=== PATIENT | male | born 1955 | race Caucasian/White ===

== ENCOUNTER 2021-10-23 05:29 | Day surgery (SDC) | payer MEDICARE, OTHER ==
[2021-10-16 12:13] LABS: BASOPHILS % (AUTO) 0.6 % (0-1); EOSINOPHILS % (AUTO) 0.5 % (0-6); LYMPHOCYTES % (AUTO) 16.3 % (21-51); MEAN CORPUSCULAR HEMOGLOBIN 29.3 PG (27.0-31.0); MEAN CORPUSCULAR HGB CONC 33.3 g/dL (33.0-36.5); MEAN CORPUSCULAR VOLUME 88.1 FL (78-98); MEAN PLATELET VOLUME 7.5 FL (7.4-10.4); MONOCYTES # (AUTO) 0.4 X10'3 (0-0.9); MONOCYTES % (AUTO) 6.1 % (2-12); NEUTROPHILS # (AUTO) 4.5 X10'3 (1.8-7.7); NEUTROPHILS % (AUTO) 76.5 % (42-75); PRE OP HEMATOCRIT 47.4 % (42.0-52.0); PRE OP HEMOGLOBIN 15.8 g/dL (14.0-17.9); PRE OP PLATELET COUNT 184 X10'3 (140-440); RED BLOOD COUNT 5.39 X10'6 (4.70-6.10)
[2021-10-16 12:25] LABS: HEMOGLOBIN A1C 6.9 % (4.5-6.2)
[2021-10-16 12:28] LABS: ALBUMIN 4.2 G/DL (3.4-5.0); ALBUMIN/GLOBULIN RATIO 1.1 (1.1-1.5); ALKALINE PHOSPHATASE 102 IU/L (46-116); BLOOD UREA NITROGEN 20 MG/DL (7-18); BUN/CREATININE RATIO 19.6 (5.4-32.0); CALCIUM 8.9 MG/DL (8.5-10.1); CHLORIDE 105 MMOL/L (99-107); CREATININE 1.02 MG/DL (0.60-1.10); PRE OP ALT 27 U/L (30-65); PRE OP ANION GAP 11 (8-16); PRE OP AST 23 U/L (10-37); PRE OP BILIRUB, TOTAL 0.6 MG/DL (0.0-1.0); PRE OP GLUCOSE 109 MG/DL (70-104); PRE OP SODIUM 141 MMOL/L (135-145); TOTAL CARBON DIOXIDE 24.9 MMOL/L (24-32); eGFR 73 ML/MIN
[2021-10-23] VITALS (16 sets, daily range): BP systolic 102–128; BP diastolic 55–82
[~2021-10-23] VITALS: Ht 172.7 cm; Wt 79.4 kg
[~2021-10-23 05:29] MED LIST: ASPI-1071 PO; ATOR20TA66 PO; CLOP75TA33 PO; EMPA10TA PO; GLIP10TA11 PO; GLIP5TAB13 PO; METF-436 PO; METO-384 PO; SEMA0.25 SQ; ringers solution, lacted 1,000 ML IV SCH
[2021-10-23] MEDS ORDERED: ceFAZolin inj. 2,000 MG in dextrose 5%-water 100 ML IV ONE (05:30)
[2021-10-23] MEDS ORDERED: vancomycin 1,500 MG in NS 300ml IV soln IV ONE (05:30)
[2021-10-23] MEDS ORDERED: acetaminophen 325mg tablet PO ONE (05:30)
[2021-10-23] MEDS ORDERED: tranexamic acid inj. 1,000 MG in normal saline 100ml IV soln 90 ML IV ONE (05:30)
[2021-10-23] MEDS ORDERED: oxyCODONE SR 10mg (sust. release) tab -2 tabs (20mg) PO ONE (05:30)
[2021-10-23] MEDS ORDERED: DOCUMENT DATE & TIME OF BETA-BLOCKER PO ONE (05:30)
[2021-10-23] MEDS ORDERED: famotidine 20mg tablet PO ONE (05:30)
[2021-10-23] MEDS ORDERED: metoclopramide 5 mg/ml inj IV ONE (05:30)
[2021-10-23] MEDS ORDERED: celeCOXIB 100mg capsule PO ONE (05:30)
[2021-10-23] MEDS ORDERED: gabapentin 300mg capsule PO ONE (05:30)
[2021-10-23] MEDS ORDERED: magnesium hydroxide 30ml (MOM) UD suspension PO PRN (06:30)
[2021-10-23] MEDS ORDERED: HYDROmorphone 1 mg/ml syringe IV PRN (06:30)
[2021-10-23] MEDS ORDERED: MESSAGE TO PHARMACY PO ONE (06:30)
[2021-10-23] MEDS ORDERED: naloxone 0.4 mg/ml inj IV PRN (06:30)
[2021-10-23] MEDS ORDERED: dextrose 50%-water 50ml dispensing syringe IV PRN ×2 (06:30)
[2021-10-23] MEDS ORDERED: potassium cl 20mEq in 1/2 NS 1,000 ML IV SCH (06:30)
[2021-10-23] MEDS ORDERED: acetaminophen 325mg tablet PO PRN (06:30)
[2021-10-23] MEDS ORDERED: traMADol 50MG tablet PO PRN ×2 (06:30)
[2021-10-23] MEDS ORDERED: HYDROmorphone inj. 0.5 MG/0.5 ML DISP.SYRIN IV PRN (06:30)
[2021-10-23] MEDS ORDERED: bisacodyl 10mg suppository rectal RC PRN (06:30)
[2021-10-23] MEDS ORDERED: diphenhydrAMINE 25mg capsule PO PRN ×2 (06:30)
[2021-10-23] MEDS ORDERED: ondansetron/PF 4mg/2ml inj IV PRN ×2 (06:30→07:05)
[2021-10-23] MEDS ORDERED: glucagon, human recombinant 1mg kit SUBCUT PRN (06:30)
[2021-10-23] MEDS ORDERED: DEXTROSE 15 GM of carb/4 tabs (each vial/BOTTLE has 4 tablets) PO PRN ×2 (06:30)
[2021-10-23] MEDS ORDERED: insulin Lispro (HumaLOG) vial - multi-dose SQ SCH (06:30)
--- NOTE | 2021-10-23 06:33 | NUR ---
PATIENT DID NOT WATCH DVD FOR TOTAL JOINT NO OINTMENT DONE AT HOME EITHER PER PATIENT. PEDAL PULSES MARKED.
[2021-10-23] MEDS ORDERED: ROPIVAcaine 0.5% (5mg/ml) 30ml vial ONE (06:43)
[2021-10-23] MEDS ORDERED: cloNIDine hcl/PF 100mcg/ml inj ONE (06:43)
[2021-10-23] MEDS ORDERED: epiNEPHrine 1 mg/ml inj ONE (06:43)
[2021-10-23] MEDS ORDERED: ketorolac trometh. 30mg/ml inj. ONE (06:43)
[2021-10-23] MEDS ORDERED: fentaNYL/PF 50MCG/1 ML 2ML syringe ONE (07:01)
[2021-10-23] MEDS ORDERED: MIDAZolam 1mg/ml 10ml vial ONE (07:01)
[2021-10-23] MEDS ORDERED: morphine 2 MG/ML inj. syringe IV PRN (07:05)
[2021-10-23] MEDS ORDERED: labetalol 20mg/4ml (5mg/ml) syringe IV PRN (07:05)
[2021-10-23] MEDS ORDERED: ringers solution, lacted 1,000 ML IV SCH (07:05)
[2021-10-23] MEDS ORDERED: morphine 4 MG/ML inj SYRINge IV PRN (07:05)
[2021-10-23] MEDS ORDERED: fentaNYL/PF 50MCG/1 ML 2ML syringe IV PRN ×2 (07:05)
[2021-10-23] MEDS ORDERED: hydrALAZINE 20mg/ml inj. IV PRN (07:05)
[2021-10-23] MEDS ORDERED: vancomycin 1,000mg inj ONE (07:24)
[2021-10-23] MEDS ORDERED: epiNEPHrine 1 mg/ml inj IM ONE (07:30)
[2021-10-23] MEDS ORDERED: ketorolac trometh. 30mg/ml inj. IM ONE (07:30)
[2021-10-23] MEDS ORDERED: propofol inj 20 ML IV ONE (07:36)
[2021-10-23] MEDS ORDERED: LIDOcaine 2% (20mg/ml) 5ml vial ONE (07:36)
[2021-10-23] MEDS ORDERED: ePHEDrine 50MG/ML INJ. ONE (07:39)
[2021-10-23] MEDS: gabapentin 300mg capsule PO SCH ×2 (08:00→12:29)
--- NOTE | 2021-10-23 08:42 | NUR ---
Received from OR via BED, accompanied by Anesthesiologist DR DOUGHERTY and report given by Anesthesiologist AND GEARCASE ASSEMBLER. PT DROWSY, DENIES PAIN, LEFT LEG IN BRACE W/LEG WRAP, AVA DRAIN CDI. DERMATOME LEVEL L-1. Addendum: 10/23/21 at 0911 by Jess Mercer RN Amended: Links added.
--- NOTE | 2021-10-23 09:52 | NUR ---
Report called to receiving nurse. Transferred via BED, 1 BAG OF Belongings SENT W/PT TO ROOM 4022B. BLL, CALL LIGHT GIVEN, SIDE RAILS UP X 2, PT ORIENTED TO SELF, SURROUNDINGS AND SAFETY. PT ATTACHED TO VS MACHINE. RECEIVING RN NOTIFIED OF PTS ARRIVAL. Special Issues communicated to receiving nurse. YES. Addendum: 10/23/21 at 1008 by Jess Mercer RN Amended: Links added.
[2021-10-23] MEDS ORDERED: tranexamic acid inj. 800 MG in normal saline 100ml IV soln 92 ML IV ONE (11:35)
[2021-10-23] MEDS ORDERED: cefazolin/dext.iso 2gm/100ml 100 ML IV SCH (16:00)
[2021-10-23] MEDS ORDERED: VANCOMYCIN 1,500MG inj. 1,500 MG in normal saline 500ml IV soln 300 ML IV ONE (19:00)
[2021-10-23] MEDS ORDERED: ascorbic acid 500mg tablet PO SCH (20:00)
[2021-10-23] MEDS ORDERED: insulin glargine (Lantus) pen - multi-dose SQ SCH (21:00)
[2021-10-23] MEDS ORDERED: sennosides 8.6mg tablet PO SCH (21:00)
[2021-10-24] MEDS ORDERED: atorvastatin 20mg tablet PO SCH (08:00)
[2021-10-24] MEDS ORDERED: metoprolol succinate 25mg (24-HOUR) SR. Tablet PO SCH (08:00)
[2021-10-24] MEDS ORDERED: multivitamins, therapeutics tablet PO SCH (08:00)
[2021-10-24] MEDS ORDERED: aspirin 81mg, enteric-coated 1 TAB TABLET.DR PO SCH (08:00)
[2021-10-24] MEDS ORDERED: clopidogrel 75mg tablet PO SCH (08:00)
[2021-10-24] MEDS ORDERED: celeCOXIB 100mg capsule PO SCH (20:00)
== END 2021-10-23 19:00 | disposition home or self-care (01) ==
LOC: PAS 05:29 → UNDOADMIN 06:33 → ORTHO 4S 06:33 → UNDODISIN 19:00 → PAS 19:00
PROVIDERS: ATTEND Orthopaedic Surgery
DX: M16.12 Unilateral primary osteoarthritis, left hip (principal); I10 Essential (primary) hypertension; E11.9 Type 2 diabetes mellitus without complications; I25.2 Old myocardial infarction; Z79.899 Other long term (current) drug therapy; M76.892 Other specified enthesopathies of left lower limb, excluding foot; Z98.890 Other specified postprocedural states; Z87.891 Personal history of nicotine dependence; Z79.82 Long term (current) use of aspirin; Z95.5 Presence of coronary angioplasty implant and graft; Z72.89 Other problems related to lifestyle; Z80.8 Family history of malignant neoplasm of other organs or systems; Z82.49 Family history of ischemic heart disease and other diseases of the circulatory system
CPT/HCPCS: 27130; 36415; 72170; 80053; 82948; 83036; 85025; 86885; 86900; 86901; 87081; 87811; 97110; 97161; 97530; C1776; J0171; J0690; J0735; J1815; J1885; J2250; J2704; J2765; J2795; J3010; J3370; J3490; J7030; J7040; J7060; J7120; Z7506; Z7508; Z7512; A4215; A7000; G0378

== ENCOUNTER 2024-06-04 08:36 | Outpatient (CLI) | payer MEDICARE, OTHER ==
[~2024-06-04 08:36] MED LIST changes: -GLIP10TA11 PO; +GLIP10TA18 PO; -GLIP5TAB13 PO; +GLIP5TAB23 PO; -ringers solution, lacted 1,000 ML IV SCH
== END 2024-06-04 23:59 | disposition home or self-care (01) ==
LOC: MRI02 08:36
PROVIDERS: ATTEND Family Medicine Sports Medicine
DX: M51.17 Intervertebral disc disorders with radiculopathy, lumbosacral region (principal); M79.641 Pain in right hand; M48.07 Spinal stenosis, lumbosacral region; M65.321 Trigger finger, right index finger; M77.9 Enthesopathy, unspecified; M47.27 Other spondylosis with radiculopathy, lumbosacral region
CPT/HCPCS: 72148